=== PATIENT | male | born 1975 | race Caucasian/White ===

== ENCOUNTER 2023-04-03 20:29 | Emergency (ER) | payer BC, SELFPAY ==
[2023-04-03 20:44] VITALS: BP 143/93; PULSE 73; RESP 18; TEMP 36.4; O2SAT 96; BMI 33.9
--- NOTE | 2023-04-03 21:03 | ED.GENADULT ---
HPI - General Adult General Chief complaint: Extremity Pain/Injury, Lower Stated complaint: Left leg infection, high d dimer Time Seen by Provider: 04/03/23 20:54 Source: patient Mode of arrival: ambulatory Limitations: no limitations History of Present Illness HPI narrative: 47-year-old male presenting at the request of the Urgent Care nurse practitioner for elevated D-dimer. Patient suffered a laceration to the anterior left leg proximally 8 days ago and presented to the urgent care today for increased swelling and redness. Patient denies any systemic symptoms. Related Data Home Medications Medication Instructions Recorded Confirmed certolizumab pegol 400 mg/2 mL 400 mg subcut Q4W 04/03/23 04/03/23 (200 mg/mL x2) subcutaneous syringe kit (Cimzia) omeprazole magnesium 20 mg 20 mg PO QDAY PRN 04/03/23 04/03/23 capsule,delayed release (Acid Single Wire Saw Operator (omeprazole)) Allergies Allergy/AdvReac Type Severity Reaction Status Date / Time No Known Drug Allergies Allergy Verified 04/03/23 16:59 Review of Systems Status of ROS: Reports: 10 or more systems reviewed and unremarkable except as noted in History and below [facility] Medical History Psoriatic arthritis ?L40.50 - Arthropathic psoriasis, unspecified (ICD-10) Social History Smoking Status: Current every day smoker Do you use any of these nicotine containing products: None How often do you have a drink containing alcohol: 4 or more times a week How many standard drinks containing alcohol do you have on a typical day: 7 to 9 How often do you have six or more drinks on one occasion: Daily or almost daily AUDIT-C Alcohol total score: 11 Non-prescribed substance use: denies use Exam Narrative: Exam Narrative: Well-nourished well-developed patient in no acute distress. Alert and oriented. Answers questions appropriately. Mood and affect are appropriate. Thoughts are goal oriented and rational. No tangential or magical thinking noted. Patient speaks in full sentences without needing to catch his breath. Speech is not slurred or pressured. Patient does not appear ill or toxic. Walks without difficulty. HEENT: Normocephalic atraumatic. Pupils are equally round reactive to light. Extraocular muscles are intact. Conjunctivae are moist without any icterus noted. Moist mucous membranes. Extremities: Right lower extremity appears normal. Left lower extremity has a v-shaped laceration on the anterior lawrence that appears to be healing appropriately. He has an area of erythema around the laceration with very sharp borders in a square shape consistent with a bandage, some petechia. He does have a 1+ pitting edema from the laceration down to the ankle. The skin is not hot to touch. There is no drainage coming from the laceration, it has scabbed over appropriately. Skin: Well perfused. Const: Vital Signs, click to edit/add: Vital Signs - 24 hr 04/03/23 20:44 Temperature 97.6 F Pulse Rate [Pulse Oximeter] 73 Respiratory Rate 18 Blood Pressure [Ri ght Upper Arm] 143/93 H Pulse Oximetry 96 Oxygen Delivery Me thod Room Air Course Course ED Course: I did review the patient's lab work which included a D-dimer done in the urgent care and was elevated at 0.61. We discussed that D-dimer can be elevated in the setting of injury and healing. Given the laceration and the area of swelling I do not believe that the patient has a DVT that requires further imaging. The swelling and elevated D-dimer are both consistent with his laceration. Vital Signs Vital signs: Initial Vital Signs Temperature 97.6 F 04/03/23 20:44 Temperature Source Temporal Artery Scan 04/03/23 20:44 Pulse Rate 73 04/03/23 20:44 Respiratory Rate 18 04/03/23 20:44 Blood Pressure 143/93 H 04/03/23 20:44 Blood Pressure Mean 109 H 04/03/23 20:44 Blood Pressure Position Sitting 04/03/23 20:44 Pulse Oximetry 96 04/03/23 20:44 Oxygen Delivery Method Room Air 04/03/23 20:44 Vital Signs Temperature 97.6 F 04/03/23 20:44 Pulse Rate 73 04/03/23 20:44 Respiratory Rate 18 04/03/23 20:44 Blood Pressure 143/93 H 04/03/23 20:44 Pulse Oximetry 96 04/03/23 20:44 Oxygen Delivery Method Room Air 04/03/23 20:44 Temperature 97.6 F 04/03/23 20:44 Pulse Rate 73 04/03/23 20:44 Respiratory Rate 18 04/03/23 20:44 Blood Pressure 143/93 H 04/03/23 20:44 Pulse Oximetry 96 04/03/23 20:44 Oxygen Delivery Method Room Air 04/03/23 20:44 Medical Decision Making MDM Narrative Medical decision making narrative: 47-year-old male laceration to the anterior lawrence appears to be healing appropriately, I do not believe that he has cellulitis at this time. However, patient already picked up his antibiotics and we discussed that it would be okay for him to take them in the event that he has an infection brewing. We discussed elevating leg, wearing compression stockings. We discussed that smoking prevents healing. Patient was in agreement with everything we discussed and had no other questions. Lab Data Lab results reviewed: Yes I reviewed the patient's lab results Discharge Plan Discharge Clinical Impression: Laceration of leg Patient Disposition: Home, Self-Care Condition: Stable Additional Instructions: Elevate legs as much as possible. If your out walking around wear compression stocking. No need to wear dressings on the laceration anymore as it has scabbed over already. Okay to take prescribed antibiotics. Prescriptions: No Action Cimzia 400 mg/2 mL (200 mg/mL x 2) syringe kit 400 mg subcut Q4W Rx Instructions: administer as 2 equally divided doses at 2 different sites in abdomen or thigh omeprazole magnesium [Acid Single Wire Saw Operator (omeprazole)] 20 mg capsule,delayed release(DR/EC) 20 mg PO QDAY PRN Follow Up/Referrals: Provider,Not a Local [Referring] - Stand Alone [facility]: [facility] Info Instructions
== END 2023-04-03 21:20 | disposition home or self-care (01) ==
LOC: ED 21:04
PROVIDERS: Emergency Provider Family Medicine; PCP Family Medicine
DX: S81.812A Laceration without foreign body, left lower leg, initial encounter (principal)
CPT/HCPCS: 85379; 99282; 99283; 99284